=== PATIENT | female | born 1995 | race Caucasian/White ===

== ENCOUNTER 2018-04-16 15:59 | Emergency (ER) | payer SELFPAY ==
[2018-04-16 16:14] VITALS: BP 139/93
[2018-04-16] MEDS ORDERED: Acetaminophen/HYDROcodone 325-5 MG Tab PO ONE (16:51)
--- NOTE | 2018-04-16 19:23 | EDM.PDOC ---
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 Pain is primarily low mid pelvis and also to the left lower abdomen and pelvis. No nausea or vomiting. She denies voiding symptomatology. She has had an IUD in place for about 4 years and is requesting to have that removed. Her last menstrual period about 3-4 weeks ago. No current bleeding or spotting. 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 ASSEMBLER: none Lower Pelvic Pain Score (Numeric/FACES): 8 - Related Data Allergies Allergy/AdvReac Type Severity Reaction Status Date / Time coconut Allergy Hives Verified 05/01/17 09:42 CDT iodine Allergy Hives Verified 05/01/17 09:42 CDT loratadine [From Claritin] Allergy Rash Verified 05/01/17 09:42 CDT Penicillins Allergy Rash Verified 05/01/17 09:42 CDT sumatriptan Allergy Other Verified 05/01/17 09:42 CDT Home Meds: Home Meds Acetaminophen/HYDROcodone [[place] 325-5 MG] 1 tab PO Q6H PRN #10 tablet 04/16/18 [Rx] Albuterol Sulfate [Proair Respiclick] 2 puff INH ASDIRECTED PRN 04/16/18 [ History] Past Medical History - Past Health History Medical/Surgical History: Denies Medical/Surgical History HEENT History: Reports: None Cardiovascular History: Reports: None Respiratory History: Reports: Asthma Gastrointestinal History: Reports: None Genitourinary History: Reports: None 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 Musculoskeletal History: Reports: None Neurological History: Reports: Migraines, Other (See Below) 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; spinal tap for headaches Psychiatric History: Reports: None Endocrine/Metabolic History: Reports: None Hematologic History: Reports: None Immunologic History: Reports: None Oncologic (Cancer) History: Reports: None Dermatologic History: Reports: None - Infectious Disease History Infectious Disease History: Reports: Chicken Pox - Past Surgical History Head Surgeries/Procedures: Reports: None Female Surgical History: Reports: D&C Social & Family History - Family History Family Medical History: Noncontributory - Tobacco Use Smoking Status *Q: Current Every Day Smoker Years of Tobacco use: 6 Packs/Tins Daily: 0.5 - Caffeine Use Caffeine Use: Reports: Coffee, Energy Drinks, Soda, Tea - Recreational Drug Use Recreational Drug Type: Reports: Marijuana/Hashish Other Recreational Drug Type: last used about 1 week ago ED ROS GENERAL - Review of Systems Review Of Systems: See Below HEENT: Reports: No Symptoms Respiratory: Denies: Shortness of Breath Cardiovascular: Denies: Chest Pain GI/Abdominal: Denies: Abdominal Pain Musculoskeletal: Reports: Back Pain. Denies: Shoulder Pain Skin: Reports: No Symptoms Neurological: Reports: No Symptoms ED EXAM, RENAL/ - Physical Exam Exam: See Below General Appearance: Alert, Mild Distress Throat/Mouth: Normal Inspection Respiratory/Chest: No Respiratory Distress, Lungs Clear, Normal Breath Sounds Cardiovascular: Regular Rate, Rhythm GI/Abdominal: Soft, Tender (Very minimal tenderness left lower abdomen pelvis) (Female) Exam: Normal External Exam, Normal Speculum Exam, Vaginal Discharge (Small amount), Other (no string visualized at time of pelvic exam) Extremities: Normal Inspection Neurological: Alert, No Motor/Sensory Deficits Skin Exam: Warm, Dry, Normal Color Course - Vital Signs Last Recorded V/S: Last Vital Signs Temp 97.4 F 04/16/18 16:13 Pulse 105 H 04/16/18 16:13 Resp 20 04/16/18 16:13 BP 139/93 H 04/16/18 16:13 Pulse Ox 100 04/16/18 16:13 - Orders/Labs/Meds Labs: Laboratory Tests 04/16/18 04/16/18 Range/Units 16:30 16:30 Urine Color Yellow (Yellow) Urine Appearance Clear (Clear) Urine pH 6.0 (5.0-8.0) Ur Specific [place] > or = 1.030 (1.005-1.030) Urine Protein Negative (Negative) Urine Glucose (UA) Negative (Negative) Urine Ketones Negative (Negative) Urine Occult Blood Negative (Negative) Urine Nitrite Negative (Negative) Urine Bilirubin Negative (Negative) Urine Urobilinogen 0.2 (0.2-1.0) Ur Leukocyte Esterase Negative (Negative) Urine RBC 0-5 (0-5) /hpf Urine WBC 0-5 (0-5) /hpf Ur Epithelial Cells 0-5 (0-5) /hpf Urine Bacteria Rare (FEW) /hpf Urine Mucus Not seen (FEW) /hpf Urine HCG, Qual Negative (NEGATIVE) Meds: Medications Discontinued Medications Generic Name Dose Route Start Last Admin Trade Name Freq PRN Reason Stop Dose Admin Hydrocodone Bitart/Acetaminophen 1 tab 04/16/18 16:51 04/16/18 16:58 [place] 325-5 Mg PO 04/16/18 16:52 1 tab ONETIME ONE Administration - Re-Assessments/Exams Free Text/Narrative Re-Assessment/Exam: 04/16/18 20:50 No string visualized at time of exam, Patient is not aware of it ever being removed or falling out, states it was placed about 4 yrs ago. Unsure if IUD is out or if I am not visualizing the string for removal. Her exam is fairly unremarkable. UA was clear and also urine hCG negative. This is something that can very safely wait to see one of the providers over at the clinic. Patient is agreeable with that. Discharge instructions as documented. Departure - Departure Time of Disposition: 19:20 Disposition: Home, Self-Care 01 Condition: Fair Clinical Impression: Pelvic pain - Discharge Information Prescriptions: Acetaminophen/HYDROcodone [[place] 325-5 MG] 1 tab PO Q6H PRN #10 tablet PRN Reason: Pain Instructions: Pelvic Pain, Female Referrals: PCP,None [Primary Care Provider] - Forms: ED Department Discharge Additional Instructions: You may alternate Tylenol and Advil, ibuprofen or Aleve as needed for any further discomfort. He may take hydrocodone if needed for severe pain. Not take Tylenol and hydrocodone at the same time, do not drive or work when taking hydrocodone. See one of our woman's health providers at our [facility] early next week, next available appointment. Call tomorrow morning for appointment. Return to ED as needed if symptoms worsening in any way
== END 2018-04-16 19:30 | disposition home or self-care (01) ==
LOC: JD.ED 15:59
DX: R10.2 Pelvic and perineal pain (principal); F17.210 Nicotine dependence, cigarettes, uncomplicated; Z91.018 Allergy to other foods; Z91.09 Other allergy status, other than to drugs and biological substances; Z88.0 Allergy status to penicillin; Z88.8 Allergy status to other drugs, medicaments and biological substances
CPT/HCPCS: 58301; 81001; 81025; 99284; A9270; 99283